=== PATIENT | female | born 1970 | race Asian ===

== ENCOUNTER 2019-04-01 08:30 | Emergency (ER) | payer BC ==
[~2019-04-01] VITALS: Ht 157.5 cm; Wt 43.5 kg
--- NOTE | 2019-04-01 08:43 | NUR ---
Pt placed in bed 6
--- NOTE | 2019-04-01 08:45 | NUR ---
Patient comes to ER accompanied by in personal vehicle, [employer], verbal and ambulatory. Patient has complaint of LT flank pain 6/10 x 1 day, and N/V x2 days. Patient denies urinary pain, urine sample collected was red tinged. No oher complaint or injury at this time.
[2019-04-01 08:46] VITALS: BP_SYST 148
--- NOTE | 2019-04-01 08:55 | NUR ---
DR MICHEL at bedside for ER evaluation
--- NOTE | 2019-04-01 09:10 | NUR ---
Patient taken to radiology for CT scan, accompanied by Drug Enforcement [employer] Agent
--- NOTE | 2019-04-01 09:28 | NUR ---
Patient returned from CT, tolerated well with minimal discomfort, is at bedside.
[2019-04-01 09:43] LABS: BASOPHILS % (AUTO) 0.6 % (0.0-2.0); EOSINOPHILS % (AUTO) 0.2 % (0.0-4.0); HEMATOCRIT 40.1 % (36-48); HEMOGLOBIN 13.3 g/dL (12.0-16.0); LYMPHOCYTES # (AUTO) 1.5 K/uL (1.0-5.5); LYMPHOCYTES % (AUTO) 19.3 % (20.5-51.5); MEAN CORPUSCULAR HEMOGLOBIN 31 pg (27-31); MEAN CORPUSCULAR HGB CONC 33 % (32-36); MEAN CORPUSCULAR VOLUME 93 fL (79.0-98.0); MONOCYTES # (AUTO) 0.6 K/uL (0.0-1.0); MONOCYTES % (AUTO) 7.9 % (1.7-9.3); NEUTROPHILS # (AUTO) 5.8 K/uL (1.8-7.7); PLATELET COUNT (AUTO) 208 K/uL (130-430); RED BLOOD CELL COUNT(AUTO) 4.32 MIL/uL (4.2-6.2); RED CELL DISTRIBUTION WIDTH 12.6 % (9.0-15.0)
[2019-04-01 10:10] LABS: CALCIUM 9.6 mg/dL (8.4-11.0); CREATININE 0.61 mg/dL (0.55-1.30); POTASSIUM 3.8 mmol/L (3.5-5.1)
[2019-04-01 10:15] LABS: ALBUMIN 3.5 g/dL (3.4-4.8); TOTAL BILIRUBIN 0.9 mg/dL (0.0-1.0)
[2019-04-01] MEDS ORDERED: ONDANSETRON HCL 4 MG/2 ML VIAL IVP ONE (10:15)
[2019-04-01] MEDS ORDERED: NACL 0.9% 1,000 ML IV ONE (10:15)
[2019-04-01] MEDS ORDERED: MORPHINE 4 MG/ML INJ. SYRINGE IVP ONE (10:15)
[2019-04-01 10:16] LABS: BILIRUBIN,URINE NEGATIVE (NEGATIVE); BLOOD, URINE 3+ (NEGATIVE); CLARITY/URINE HAZY (CLEAR); GLUCOSE,URINE NEGATIVE (NEGATIVE); KETONES,URINE NEGATIVE (NEGATIVE); LEUKOCYTE ESTERASE ,URINE NEGATIVE (NEGATIVE); NITRITE, URINE NEGATIVE (NEGATIVE); PROTEIN URINE TRACE (NEGATIVE); UROBILINOGEN,URINE 0.2 (0.2-1.0)
--- NOTE | 2019-04-01 10:20 | NUR ---
# 20 gauge angiocath placed to LT AC. Use of asceptic technique. Opsite placed over site. Blood return noted. Flushed with 10 cc of normal saline. No evidence of infiltration noted. Patient tolerated well.
--- NOTE | 2019-04-01 10:42 | NUR ---
Medicated per MD orders. IVF infusing with no s/s of infiltration at this time. Will cont to monitor
[2019-04-01 10:43] LABS: COLOR,URINE RED (YELLOW); RBC,URINE 50-80 /HPF (0-3); WBC,URINE 0-3 /HPF (0-3)
[2019-04-01 10:44] LABS: BACTERIA,URINE RARE /HPF (None Seen)
--- NOTE | 2019-04-01 11:12 | NUR ---
Patient resting in bed with at bedside, patient states that pain is greatly relieved at 2/10, no signs of distress noted, will continue to monitor.
[2019-04-01 11:29] VITALS: BP_SYST 144
--- NOTE | 2019-04-01 11:30 | NUR ---
Patient given written and verbal discharge instructions and verbalizes understanding. ER MD discussed with patient the results and treatment provided. Patient in stable condition. ID arm band removed. IV catheter removed intact and dressing applied, no active bleeding. Rx of [place], Ibuprofen, and Flomax given. Patient educated on pain management and to follow up with PMD. Pain Scale 2/10. Opportunity for questions provided and answered. Medication side effect fact sheet provided.
== END 2019-04-01 11:29 | disposition home or self-care (01) ==
LOC: SED 08:30
DX: N20.0 Calculus of kidney (principal); K59.00 Constipation, unspecified; I10 Essential (primary) hypertension
CPT/HCPCS: 36415; 74176; 80053; 81000; 81025; 85025; 96361; 96374; 96375; 99284; J2270; J2405; J7030